=== PATIENT | male | born 1975 | race African-American/Black ===

== ENCOUNTER 2020-04-09 22:45 | Emergency (ER) | payer MEDICAID ==
[~2020-04-09] VITALS: Ht 185.4 cm; Wt 81.6 kg
--- NOTE | 2020-04-09 22:47 | NUR ---
BERENICE MANCILLA. TAKEN TO CHAIR A
[2020-04-09 22:58] VITALS: BP 150/97
--- NOTE | 2020-04-09 22:58 | NUR ---
44 Y/O MALE BROUGHT INTO ER BY KEILY MANCILLA. KEILY STATES WAS FOUND BY [place] [employer] LETHARGIC, HOWEVER UPON THEIR ARRIVAL PT WAS [facility] 15. PER [facility] PT STATED HE FELT NERVOUS, AND ANXIETY WAS KICKING IN DUE TO IV DRUG USE OF HEROINX 3-4 HRS AGO IN THE LEFT ARM, AND TOES. PT STATED HE WAS RELEASED FROM ASSISTED 04/08/20. "I LIVE IN THE STREETS". DENIES SOB, R/R EQUAL AND UNLABORED. C/O NAUSEA, VOMITING, DIARRHEA X 1 DAY. 0/10 PAIN. DENIES SI/HI. PT SITTING IN CHAIR A, REQUESTED A SANDWICH AND JUICE, GIVEN REQUESTED ITEMS. WENT INTO BATHROOM AND BEGAN TO SHAVE. REQUESTED FOR TAXI TO TAKE HIM TO "[place] [facility]". WILL CONTINUE TO MONITOR PMH: HTN; ANXIETY; BIPOLAR DISORDER NKDA
--- NOTE | 2020-04-09 23:00 | NUR ---
PT FOUND IN RESTROOM ATTEMPTING TO SHAVE WITH PERSONAL CLIPPERS. INFORMED PT THIS WAS NOT ALLOWED. PT REQUESTING FOOD AND A BED TO REST IN. PT PROVIDED WITH SANDWICH AND JUICE AND EXPLAINED THAT HE WAS IN A FAST TRACK CHAIR TO EXPEDITE CARE DUE TO NO BED AVAILIBILITY.
--- NOTE | 2020-04-09 23:14 | NUR ---
FOUND PT AGAIN IN RESTROOM ATTEMPTING TO SHAVE. REDIRECTED PT TO CHAIR A. RE-EXPLAINED THAT SHAVING IN RESTROOM WITH PLUG IN [place] WAS NOT ALLOWED.
--- NOTE | 2020-04-09 23:15 | NUR ---
Dr. Vang examining patient.
--- NOTE | 2020-04-09 23:35 | NUR ---
PT ASKING STAFF FOR MONEY AND OR DEBIT CARD. INFORMED PT THIS WAS INAPPROPRIATE AND NOT ALLOWED. PT DISCHARGED AT THIS TIME; OFFERED HOMELESS [employer] PACKET, INFORMATION FOR DRUG/ALCOHOL RESOURCES, SANDWICH, JUICE. PROVIDED WRITTEN AND VERBAL DISCHARGE INSTRUCTIONS. PT REFUSED TO SIGN D/C PAPERWORK. LEFT FACILITY AMBULATORY WITH STEADY GAIT. ALERT TO NAME BIRTHDAY PALCE EVENT.
[2020-04-09 23:45] VITALS: BP 150/97
== END 2020-04-09 23:35 | disposition home or self-care (01) ==
LOC: MED 22:45
DX: F16.10 Hallucinogen abuse, uncomplicated (principal); F15.10 Other stimulant abuse, uncomplicated; F11.10 Opioid abuse, uncomplicated; F41.9 Anxiety disorder, unspecified; I10 Essential (primary) hypertension
CPT/HCPCS: 99283